=== PATIENT | male | born 1975 | race Hispanic/Latino ===

== ENCOUNTER 2020-04-15 19:28 | Emergency (ER) | payer OTHER, SELFPAY ==
[2020-04-15] MEDS ORDERED: AZITHROMYCIN 250 MG TABLET PO ONE (22:44)
== END 2020-04-16 00:44 | disposition home or self-care (01) ==
LOC: EDH 19:28
DX: U07.1 COVID-19 (principal); J20.9 Acute bronchitis, unspecified
CPT/HCPCS: 71045